=== PATIENT | female | born 1965 | race Caucasian/White ===

== ENCOUNTER → 2019-10-31 11:43 | Outpatient (BNVA) | payer OTHER, SELFPAY | PROVIDERS: Family Provider Family Medicine; Visit Provider Internal Medicine | DX: Z11.59 Encounter for screening for other viral diseases (principal) | CPT/HCPCS: 87635 ==

== ENCOUNTER → 2022-06-30 13:23 | Outpatient (BNVA) | payer OTHER, SELFPAY | PROVIDERS: Family Provider Family Medicine; PCP Family Medicine; Visit Provider Family Medicine | DX: Z00.00 Encounter for general adult medical examination without abnormal findings (principal); E21.3 Hyperparathyroidism, unspecified; R23.9 Unspecified skin changes; F41.9 Anxiety disorder, unspecified; Z79.890 Hormone replacement therapy | CPT/HCPCS: 80053; 80061; 82672; 84144; 84402; 84403; 85025 ==

== ENCOUNTER → 2022-09-21 11:16 | Outpatient (BNVA) | payer OTHER, SELFPAY | PROVIDERS: Family Provider Family Medicine; PCP Family Medicine; Visit Provider Family Medicine | DX: E21.3 Hyperparathyroidism, unspecified (principal); Z79.890 Hormone replacement therapy | CPT/HCPCS: 80053; 82672; 84402; 84403 ==

== ENCOUNTER → 2023-09-06 08:23 | Outpatient (BNVA) | payer OTHER, SELFPAY | PROVIDERS: Family Provider Family Medicine; PCP Family Medicine; Visit Provider Family Medicine | DX: E21.3 Hyperparathyroidism, unspecified (principal); Z79.890 Hormone replacement therapy | CPT/HCPCS: 80053; 82672; 84403; 85025 ==

== ENCOUNTER 2024-03-18 07:29 | Outpatient (CLI) | payer OTHER, SELFPAY ==
[2024-03-18 08:08] LABS: Alanine Aminotransferase 17 U/L (0-33); Albumin Level 4.1 g/dL (3.5-5.2); Alkaline Phosphatase 64 U/L (35-105); Aspartate Amino Transferase 22 U/L (0-32); Blood Urea Nitrogen 20 mg/dL (6-20); Calcium 9.1 mg/dL (8.5-10.5); Carbon Dioxide 29 mmol/L (22-29); Chloride 101 mmol/L (98-107); Globulin 2.7 g/dL (1.3-4.6); Glomerular Filtration Rate 46.3 mL/min (90-130); Glucose 96 mg/dL (65-115); Osmolality Calculated 288 mOsm/kg (285-295); Sodium 138 mmol/L (136-145); Total Bilirubin 0.5 mg/dL (0.15-1.2); Total Protein 6.8 g/dL (6.6-8.7)
== END 2024-03-18 07:30 | disposition home or self-care (01) ==
LOC: LAB 07:31
PROVIDERS: Family Provider Family Medicine; PCP Family Medicine; Visit Provider Family Medicine
DX: F41.9 Anxiety disorder, unspecified (principal); E21.3 Hyperparathyroidism, unspecified; Z79.890 Hormone replacement therapy
CPT/HCPCS: 36415; 80053